=== PATIENT | male | born 1955 | race Caucasian/White ===

== ENCOUNTER 2020-05-26 10:08 | Emergency (ER) | payer OTHER, SELFPAY ==
[2020-05-26 10:14] VITALS: BP 131/83; PULSE 64; RESP 20; TEMP 37.1; O2SAT 100; BMI 30.4
--- NOTE | 2020-05-26 10:26 | XR_ITS ---
EXAMINATION: XR CHEST CLINICAL INFORMATION: Weakness. Positive Covid. COMPARISON: Chest 03/05/2017 TECHNIQUE: Frontal view of the chest was obtained. FINDINGS: The lungs are hyperexpanded with increased patchy ill-defined densities throughout both lungs and increase interstitial markings most prominent in the mid and lower lobes suspicious for interstitial or parenchymal infiltrates. No consolidation or pleural effusion seen. The heart size and pulmonary vascularity is normal. No gross bony abnormality. XR/XR chest 1V IMPRESSION: Hypovolemia with abnormal chest suggestive of interstitial and/or parenchymal infiltrates. This is a new finding from 03/05/2017
--- NOTE | 2020-05-26 10:27 | ECG_ITS ---
Test Reason : GENERAL MEDICAL Blood Pressure : / mmHG Vent. Rate : 062 BPM Atrial Rate : 062 BPM P-R Int : 182 ms QRS Dur : 096 ms QT Int : 442 ms P-R-T Axes : 056 -15 -09 degrees QTc Int : 448 ms Normal sinus rhythm Minimal voltage criteria for LVH, may be normal variant Borderline ECG When compared with ECG of 05-MAR-2017 11:46, Inverted T waves have replaced nonspecific T wave abnormality in Inferior leads Referred By: Dylon Wagner Electronically Signed By:FAISAL IBARRA
[2020-05-26 10:56] LABS: Basophils Percent Auto 0.3 % (0-2); Eosinophils Percent Auto 0.5 % (0-4); Hematocrit 40.5 % (42-52); Hemoglobin 14.1 g/dl (14.0-18.0); Imm Gran Abs Auto 0.02 X10*3/uL (0.00-0.03); Imm Gran Pct Auto 0.3 % (0.0-0.4); Lymphocytes Absolute Auto 0.9 X10*3/uL (1.2-4.9); Lymphocytes Percent Auto 14.7 % (20-40); Mean Corpuscular HGB Conc 34.8 g/dl (31.0-36.0); Mean Corpuscular Hemoglobin 30.3 pg (27.0-33.0); Mean Corpuscular Volume 86.9 fL (80-98); Mean Platelet Volume 9.1 fL (9.4-12.4); Monocytes Absolute Auto 0.4 X10*3/uL (0.1-1.2); Monocytes Percent Auto 6.9 % (2-11); Neutrophils Absolute Auto 4.5 X10*3/uL (2.0-8.3); Neutrophils Percent Auto 77.3 % (45-73); Platelet Count 186 X10*3/uL (160-400); Red Blood Count 4.66 X10*6/uL (4.60-5.80); White Blood Count 5.8 X10*3/uL (4.8-10.8)
[2020-05-26 10:57] LABS: MANUAL DIFF FLAG NO
[2020-05-26] MEDS: 0.9 % Sodium Chloride 1,000 ML 999 ML IV (10:58)
[2020-05-26] MEDS: Ketorolac Tromethamine 30 MG/ML VIAL IVPUSH (10:59)
[2020-05-26 11:14] LABS: Partial Thromboplastin Time 33.4 SEC (24.1-38.0)
[2020-05-26 11:27] LABS: Alanine Aminotransferase 37 U/L (0-40); Albumin Level 3.4 g/dL (3.5-5.0); Alkaline Phosphatase 45 U/L (39-117); Anion Gap 12 (12-20); Aspartate Amino Transferase 42 U/L (5-37); Bilirubin Total 0.8 mg/dL (0.0-1.0); Blood Urea Nitrogen 20 mg/dL (9-16); Calcium 8.3 mg/dL (8.4-10.2); Carbon Dioxide 23 mmol/L (22-29); Chloride 104 mmol/L (96-108); Creatinine Clr Calc Pharmacy 98.5; Estimated Glomerular Filt Rate > 60; Glucose Random 93 mg/dL (60-115); Potassium 4.2 mmol/l (3.3-5.1); Sodium 135 mmol/L (135-145)
[2020-05-26 11:33] LABS: Troponin-I High Sensitivity < 3.5 ng/L (<3.5-35.0)
--- NOTE | 2020-05-26 11:53 | ED_ITS ---
HPI - Weakness General Chief complaint: Weakness Stated complaint: covid symptoms Time Seen by Provider: 05/26/20 10:16 Source: patient Mode of arrival: ambulatory Limitations: no limitations History of Present Illness HPI Narrative: 64-year-old male with past medical history significant for enlarged prostate status post TURP 2017 presents ambulatory via triage with complaint of worsening myalgias and weakness ongoing for the past few days states he tested positive for COVID-19 5 days ago prior to that he only had some mild body aches however his symptoms have gotten worse. No chest pain or shortness of breath. States he feels like is no energy and body hurts and has had fever at home. Complaint: generalized weakness Onset (ago): day(s) Location: generalized Migration: none Severity: moderate Associated symptoms: myalgias Related Data Previous Rx's Medication Instructions Recorded albuterol sulfate 2 puff INHALATION Q4-6H PRN 7 Days 05/26/20 #18 g azithromycin [Zithromax Z-Gonzalez] 250 mg PO DAILY 5 Days #6 tab 05/26/20 ibuprofen 800 mg PO Q8H PRN #15 tab 05/26/20 Allergies Allergy/AdvReac Type Severity Reaction Status Date / Time No Known Allergies Allergy Verified 05/26/20 10:19 [No Known Allergies*] Review of Systems Review of Systems: Constitutional: No Weight loss, + Fever, + Chills, No Night Sweats, No Fatigue, No Malaise ENT/Mouth: No Hearing loss, No Ear Pain, + Nasal Congestion, No Sinus Pain, No Hoarseness, No sore throat, No Rhinorrhea, No Swallowing Difficulty Eyes: No Eye Pain, No Swelling, No Redness, No Foreign Body, No Discharge, No Vision Changes Cardiovascular: No Chest Pain, No SOB, No Dyspnea on Exertion, No Orthopnea, No Edema, No Palpitations Respiratory: +mild dry Cough, No Sputum, No Wheezing, No Smoke Exposure, No Dyspnea Gastrointestinal: No Nausea, No Vomiting, No Diarrhea, No Constipation, No abdominal Pain, No Hematochezia, No Melena Genitourinary: No Dysuria, No Urinary Frequency, No Hematuria, No Urinary Incontinence, No Urgency, No Flank Pain Musculoskeletal: No joint pain, No Myalgias, No Joint Swelling Skin: No Skin Lesions, No rash Neuro: No Weakness, No Numbness, No Paresthesias, No Loss of Consciousness, No Dizziness, No Headache Psych: No Social Issues Heme/Lymph: No Bruising, No Bleeding,No Lymphadenopathy Endocrine: No Polyuria, No Polydipsia, No Temperature Intolerance Yes all other systems are reviewed and are negative [facility] Social History Social History Advance Directives: No Advance Directives Information Provided: No Physical Exam Vital Signs: Vital Signs: Last Vital Signs Temp 97.7 F 05/26/20 14:00 Pulse 57 05/26/20 14:00 Resp 16 05/26/20 14:00 BP 119/75 05/26/20 14:00 Pulse Ox 99 05/26/20 14:00 Body Mass Index 30.4 Course Course Course Narrative: Positive COVID 3 days ago has had increased myalgias. Afebrile non tachy pulse ox 100% on room air. Has had dry cough and high fevers at home T-max 102 degrees. Will check labs chest x-ray rule out electrolyte derangement/consolidation on x-ray. Will treat with gradual fluid neb p.r.n.. Reevaluation(s) Reevaluation #1: Feels better after gradual fluids, Toradol and dexamethasone IV. Oxygen has remained stable. Ambulatory with steady gait with stable oxygen. Will be discharged home with supportive care return follow-up instructions. [facility] - Weakness Medical Records Attestation: I reviewed the patient's medical records. Lab Data Attestation: I reviewed the patient's lab results. Result diagrams: 05/26/20 10:41 05/26/20 10:41 Labs: Lab Results 05/26/20 05/26/20 05/26/20 Range/Units 10:41 10:41 10:41 WBC 5.8 (4.8-10.8) X10*3/uL RBC 4.66 (4.60-5.80) X10*6/uL Hgb 14.1 (14.0-18.0) g/dl Hct 40.5 L (42-52) % MCV 86.9 (80-98) fL MCH 30.3 (27.0-33.0) pg MCHC 34.8 (31.0-36.0) g/dl RDW 12.0 (11.0-16.0) % Plt Count 186 (160-400) X10*3/uL MPV 9.1 L (9.4-12.4) fL Immature Gran % (Auto) 0.3 (0.0-0.4) % Neut % (Auto) 77.3 H (45-73) % Lymph % (Auto) 14.7 L (20-40) % Gonzales % (Auto) 6.9 (2-11) % Eos % (Auto) 0.5 (0-4) % Baso % (Auto) 0.3 (0-2) % Lymph # (Auto) 0.9 L (1.2-4.9) X10*3/uL Gonzales # (Auto) 0.4 (0.1-1.2) X10*3/uL Eos # (Auto) 0.0 (0.0-0.4) X10*3/uL Baso # (Auto) 0.0 (0.0-0.2) X10*3/uL Abs Immat Gran (auto) 0.02 (0.00-0.03) X10*3/uL Absolute Neuts (auto) 4.5 (2.0-8.3) X10*3/uL Absolute Nucleated RBC 0.000 (0.0-0.012) X10*3/uL Nucleated RBC % (auto) 0.0 (0.0-0.2) /100WBC PT (10.8-13.0) SEC INR (0.9-1.1) APTT 33.4 (24.1-38.0) SEC Sodium 135 (135-145) mmol/L Potassium 4.2 (3.3-5.1) mmol/l Chloride 104 (96-108) mmol/L Carbon Dioxide 23 (22-29) mmol/L Anion Gap 12 (12-20) BUN 20 H (9-16) mg/dL Creatinine 0.85 (0.5-1.4) mg/dL Estim Creat Clear Calc 98.5 Estimated GFR > 60 Random Glucose 93 (60-115) mg/dL Calcium 8.3 L (8.4-10.2) mg/dL Total Bilirubin 0.8 (0.0-1.0) mg/dL AST 42 H (5-37) U/L ALT 37 (0-40) U/L Alkaline Phosphatase 45 (39-117) U/L Troponin I High Sens (<3.5-35.0) ng/L Total Protein 6.0 L (6.5-8.0) g/dL Albumin 3.4 L (3.5-5.0) g/dL 05/26/20 05/26/20 Range/Units 10:41 10:41 WBC (4.8-10.8) X10*3/uL RBC (4.60-5.80) X10*6/uL Hgb (14.0-18.0) g/dl Hct (42-52) % MCV (80-98) fL MCH (27.0-33.0) pg MCHC (31.0-36.0) g/dl RDW (11.0-16.0) % Plt Count (160-400) X10*3/uL MPV (9.4-12.4) fL Immature Gran % (Auto) (0.0-0.4) % Neut % (Auto) (45-73) % Lymph % (Auto) (20-40) % Gonzales % (Auto) (2-11) % Eos % (Auto) (0-4) % Baso % (Auto) (0-2) % Lymph # (Auto) (1.2-4.9) X10*3/uL Gonzales # (Auto) (0.1-1.2) X10*3/uL Eos # (Auto) (0.0-0.4) X10*3/uL Baso # (Auto) (0.0-0.2) X10*3/uL Abs Immat Gran (auto) (0.00-0.03) X10*3/uL Absolute Neuts (auto) (2.0-8.3) X10*3/uL Absolute Nucleated RBC (0.0-0.012) X10*3/uL Nucleated RBC % (auto) (0.0-0.2) /100WBC PT 13.5 H (10.8-13.0) SEC INR 1.1 (0.9-1.1) APTT (24.1-38.0) SEC Sodium (135-145) mmol/L Potassium (3.3-5.1) mmol/l Chloride (96-108) mmol/L Carbon Dioxide (22-29) mmol/L Anion Gap (12-20) BUN (9-16) mg/dL Creatinine (0.5-1.4) mg/dL Estim Creat Clear Calc Estimated GFR Random Glucose (60-115) mg/dL Calcium (8.4-10.2) mg/dL Total Bilirubin (0.0-1.0) mg/dL AST (5-37) U/L ALT (0-40) U/L Alkaline Phosphatase (39-117) U/L Troponin I High Sens < 3.5 (<3.5-35.0) ng/L Total Protein (6.5-8.0) g/dL Albumin (3.5-5.0) g/dL Imaging Data Chest x-ray: Radiologist's impression: [place] [id number] XRay Report Signed Patient: Hiwot Franco#: [id number] : 8Acct:[id number] Age/Sex: 64 / MADM Date: 05/26/20 Loc: .ED Attending Dr: Ordering Physician: Dylon Wagner NP Date of Service: 05/26/20 Procedure(s): XR chest 1V Accession Number(s): [id number] cc: Dylon Wagner 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 Positive Covid. COMPARISON: Chest 03/05/2017 TECHNIQUE: Frontal view of the chest was obtained. FINDINGS: The lungs are hyperexpanded with increased patchy ill-defined densities throughout both lungs and increase interstitial markings most prominent in the mid and lower lobes suspicious for interstitial or parenchymal infiltrates. No consolidation or pleural effusion seen. The heart size and pulmonary vascularity is normal. No gross bony abnormality. XR/XR chest 1V IMPRESSION: Hypovolemia with abnormal chest suggestive of interstitial and/or parenchymal infiltrates. This is a new finding from 03/05/2017 Dictated By:SARITA HERRMANN MD Signed By:<Electronically signed by SARITA HERRMANN MD in OV>05/26/20 1134 DD/ 1026 TD/TT: Braze Operator: NGOC ECG Data Interpretation: Normal sinus rhythm DE interval within normal limits Rate 62 Nonspecific T-wave abnormality in the inferior leads Discharge Plan Discharge Clinical Impression: COVID-19 Patient Disposition: Home, Self-Care Instructions: COVID-19 (Coronavirus Disease 2019) (ED) Additional Instructions: Drink plenty of fluids Take medication prescribed Breathing exercises as reviewed Return if any concerns or worsening symptoms otherwise supportive care as discussed Self-isolation/social distancing for the next 14 days and at least until 3 days symptom-free Thank you Prescriptions: New azithromycin [Zithromax Z-Gonzalez] 250 mg tablet 250 mg PO DAILY 5 Days Qty: 6 RF: 0 ibuprofen 800 mg tablet 800 mg PO Q8H PRN (Reason: pain) Qty: 15 RF: 0 albuterol sulfate 90 mcg/actuation HFA aerosol inhaler 2 puff inhalation Q4-6H PRN (Reason: shortness of breath or wheezing) 7 Days Qty: 18 RF: 0 Referrals: ED Physician,Generic [Emergency Provider] - 1 week Interventions: ED Discharge Assessment Last Done: 05/26/20 14:27
[2020-05-26 12:00] VITALS: BP 105/66; PULSE 63; RESP 15; TEMP 36.8; O2SAT 94
[2020-05-26 12:10] LABS: INTERNATIONAL NORM RATIO 1.1 (0.9-1.1); Prothrombin Time 13.5 SEC (10.8-13.0)
[2020-05-26] MEDS: Albuterol Sulfate 90 MCG 8 GM INHALER 4 PUFF INHALE (12:12)
[2020-05-26 12:13] VITALS: PULSE 61; O2SAT 95
[2020-05-26 14:00] VITALS: BP 119/75; PULSE 57; RESP 16; TEMP 36.5; O2SAT 99
== END 2020-05-26 14:45 | disposition home or self-care (01) ==
PROVIDERS: Nurse Practitioner Primary Care; Emergency Provider Emergency Medicine Emergency Medical Services
DX: U07.1 COVID-19 (principal)
CPT/HCPCS: 36415; 71045; 80053; 84484; 85025; 85610; 85730; 93005; 94640; 96361; 96374; 96375; 99283; 99284; J1100; J1885

== ENCOUNTER 2021-02-20 10:37 | Outpatient (REF) | payer SELFPAY | END 2021-02-20 10:38 | disposition home or self-care (01) | LOC: HO.HAP 10:37 | PROVIDERS: PCP Internal Medicine; Visit Provider Internal Medicine | DX: Z13.89 Encounter for screening for other disorder (principal) ==

== ENCOUNTER 2021-03-08 09:17 | Outpatient (REF) | payer SELFPAY ==
--- NOTE | 2021-03-08 10:35 | MHC.AU.HFU ---
Hearing Instrument Follow-Up- Binaural Date of Visit: 03/08/21 Right Ear: Gaming Director: Oticon Model: Opn 2 miniRITE Serial Number: (Original) [id number] (Current, after last repair) [id number] Repair Warranty: 05/24/2021 Loss and Damage Warranty: 05/24/2020 Battery Size: 312 Bursar: Size 4 100 gain Type of Mold: Power Bursar Mold SN: [id number] Warranty: 05/26/2021 Type of Wax Guard: prowax Dispensed By: [facility] Date of Fittin05/08/2018 Left Ear: Gaming Director: Oticon Model: Opn 2 miniRITE Serial Number: [id number] Repair Warranty: 05/24/2021 Loss and Damage Warranty: 05/24/2020 Battery Size: 312 Bursar: Size 4 85 gain Type of Mold: RITE Mold hard minifit SN: [id number] Warranty: 08/09/2018 Type of Wax Guard: Prowax Dispensed By: [facility] Date of Fittin05/08/2018 Follow-Up Summary: Patient arrived to shredder picker his repaired integrated store specialist (right side). Patient reports that the right hearing aid continued to produce random beeps, though less frequently than before. He would like to send the right hearing aid out for repair. He asked if we could reprogram the left hearing aid for the right ear, and place the right integrated store specialist/mold on it to help him get by, as he prefers use of his right ear. The left instrument was reprogrammed and the mold switched over. The left store specialist/mold was returned to the patient to hold onto until the right hearing aid comes back from repair. Recommendations: Recommendations: Patient will be contacted when materials have arrived. Diagnosis Code(s): Primary Diagnosis: H90.6 Mixed Hearing Loss, Bilateral Signature: Provider: Linda Montenegro, CCC-A
== END 2021-03-08 09:18 | disposition home or self-care (01) ==
LOC: HO.HAP 09:17
PROVIDERS: Visit Provider Internal Medicine
DX: Z13.89 Encounter for screening for other disorder (principal)

== ENCOUNTER 2021-03-24 10:04 | Outpatient (REF) | payer SELFPAY | END 2021-03-24 10:05 | disposition home or self-care (01) | LOC: HO.HAP 10:04 | PROVIDERS: Visit Provider Internal Medicine | DX: Z13.89 Encounter for screening for other disorder (principal) ==

== ENCOUNTER 2021-05-04 09:10 | Outpatient (REF) | payer SELFPAY ==
--- NOTE | 2021-05-09 08:15 | MHC.AU.HFU ---
Hearing Instrument Follow-Up- Binaural Date of Visit: 05/04/21 Right Ear: Qa Lead: Oticon Model: Opn 2 miniRITE Serial Number: (Original) [id number] (Current, after last repair) [id number] Repair Warranty: 05/24/2021 Loss and Damage Warranty: 05/24/2020 Battery Size: 312 Computer Aided Drafter: Size 4 100 gain Type of Mold: Power Computer Aided Drafter Mold SN: [id number] Warranty: 05/26/2021 Type of Wax Guard: prowax Dispensed By: [facility] Date of Fittin05/08/2018 Left Ear: Qa Lead: Oticon Model: Opn 2 miniRITE Serial Number: [id number] Repair Warranty: 05/24/2021 Loss and Damage Warranty: 05/24/2020 Battery Size: 312 Computer Aided Drafter: Size 4 85 gain Type of Mold: RITE Mold hard minifit SN: [id number] Warranty: 08/09/2018 Type of Wax Guard: Prowax Dispensed By: [facility] Date of Fittin05/08/2018 Follow-Up Summary: HAP - Patient reports the right aid has intermittent, but frequent distortion, followed by lower volume, then hearing aid stops. Sent in for repair. Reprogrammed the left aid for the right ear. Patient reports he did not receive the left integrated mold as reported in a previous office note by Nely Pat who reported today she remembers giving the patient the mold. Asked patient to continue to look for the left mold. Patient is very unhappy about the rechargeable batteries being discontinued. Contacted Delores Khan at [facility] to ask about the offer of exchanging of aid to the OPN S lithium rechargeable and possibly getting a no charge left mold replacement for patients inconvenience. Delores reports the aids were originally processed as [employer] products and CANNOT be exchanged despite patient now having insurance which does not cover hearing aids.. The N/C left mold with 100 gain film and video editor will be processed. Will contact patient to give him this information. Recommendations: (Other): Schedule appointment when repair and new left integrated mold are received. Patient will bring in old hearing aids to be reprogrammed to use as back up. Patient will be leaving for [place] from May to July. Diagnosis Code(s): Primary Diagnosis: H90.6 Mixed Hearing Loss, Bilateral Services Performed: MARCOS Non-Quantity Charges: HANC: NonBillable Event Signature: Provider: Ángela Smith,,,, , CCC-A
== END 2021-05-04 09:11 | disposition home or self-care (01) ==
LOC: HO.HAP 09:10
PROVIDERS: Visit Provider Internal Medicine
DX: Z13.89 Encounter for screening for other disorder (principal)

== ENCOUNTER 2021-05-30 12:36 | Outpatient (REF) | payer SELFPAY ==
--- NOTE | 2021-05-30 13:37 | MHC.AU.HFU ---
Hearing Instrument Follow-Up- Binaural Date of Visit: 05/30/21 Right Ear: Public Health Professor: Oticon Model: Opn 2 miniRITE Serial Number: (Original) [id number] (Current, after last repair) [id number] Repair Warranty: 05/24/2021 Loss and Damage Warranty: 05/24/2020 Battery Size: 312 Learning Support Services Director: Size 4 100 gain Type of Mold: Power Learning Support Services Director Mold SN: [id number] Warranty: 05/26/2021 Type of Wax Guard: prowax Dispensed By: [facility] Date of Fittin05/08/2018 Left Ear: Public Health Professor: Oticon Model: Opn 2 miniRITE Serial Number: [id number] Repair Warranty: 05/24/2021 Loss and Damage Warranty: 05/24/2020 Battery Size: 312 Learning Support Services Director: Size 4 85 gain Type of Mold: RITE Mold hard minifit SN: [id number] Warranty: 08/24/2021 Type of Wax Guard: Prowax Dispensed By: [facility] Date of Fittin05/08/2018 Follow-Up Summary: Fit the repaired right aid #[id number] picking up previous setting with 2 programs. Per patient request, also programmed the left OPN 2 mini RITE #[id number] and his old Agil Pro RITE to all be set for the current RIGHT OPN 2 mini RITE settings. Dispensed the courtesy no charge remake of the left RITE earmold. Patient shown how to change the Right RITE mold to any of the aids when needed. Recommendations: Hearing instrument follow-up or maintenance as needed. Please contact our clinic with any questions or concerns. Diagnosis Code(s): Primary Diagnosis: H90.3 Bilateral Sensorineural Hearing Loss Services Performed:MARCOS Non-Quantity Charges: HANC: NonBillable Event Signature:Provider: Linda Smith, CCC-A
== END 2021-05-30 12:37 | disposition home or self-care (01) ==
LOC: HO.HAP 12:36
PROVIDERS: Visit Provider Internal Medicine
DX: Z13.89 Encounter for screening for other disorder (principal)

== ENCOUNTER 2021-10-12 11:15 | Outpatient (REF) | payer OTHER, SELFPAY ==
--- NOTE | ~2021-10-12 | MR_ITS ---
EXAMINATION: MR LUMBAR SPINE WITHOUT CONTRAST CLINICAL INFORMATION: 66-year-old with low back pain and bilateral sciatica. COMPARISON: None. TECHNIQUE: MRI of the lumbar spine was obtained using routine sequences without contrast. FINDINGS: Coronal Alignment: Normal. Sagittal Alignment: Trace anterolisthesis at L3-L4 noted. Otherwise normal. Lumbosacral Junction: Normal. 5 oxf-khb-rlicfoi lumbar-type vertebral bodies. Vertebral Bodies: Normal height. Disc Spaces and Endplates: Moderate disc space height loss at L5-S1 with disc desiccation, Schmorl's nodes and spondylosis. Disc desiccation noted at the levels between L2-L3 and L4-L5 inclusive, with minor degrees of spondylosis without significant disc space height loss. Spinal Canal: No abnormal developmental findings. Bone Marrow: Minimal type I degenerative marrow signal change along the endplates at L5-S1 with type II marrow signal changes as well at the L5-S1 and L4-L5 levels. Otherwise, no significant marrow-replacing process or bone marrow edema. Conus Medullaris: Terminates at T12. Morphology and signal is normal. Intradural Nerve Roots: Within normal limits. L5-S1: Diffuse disc bulging is noted with mild flattening of the ventral dural sac and minor facet arthrosis with mild narrowing of the subarticular zones without significant central spinal canal stenosis or neural impingement. There is mild bilateral neural foraminal stenosis without definite neural impingement. L4-L5: Mild diffuse disc bulging is noted with slight flattening of the ventral dural sac, with mild ligamentum flavum thickening and facet arthrosis. There is mild narrowing of the subarticular zones bilaterally without significant central spinal canal stenosis. No significant neural foraminal stenosis. L3-L4: Mild diffuse disc bulging is noted with a transverse central annular fissure, with flattening of the ventral dural sac with a prominent dorsal epidural fat pad, ligamentum flavum thickening and [id number]-[id number] facet arthropathy, right more than left. There is moderate central spinal canal stenosis, with crowding of the intradural nerve roots, with severe right and moderate left subarticular recess stenosis, likely with encroachment on the traversing right L4 nerve root. Mild foraminal narrowing noted on the right without definite exiting neural impingement. L2-L3: Mild disc bulging noted with mild flattening of the ventral dural sac, with ligamentum flavum thickening and the moderate bilateral facet hypertrophic degenerative change. Mild central canal stenosis is noted with mild narrowing of the right subarticular zone. No significant neural foraminal stenosis. L1-L2: No disc bulge or herniation. Mild facet arthropathy noted bilaterally. No canal or neural foraminal stenosis. Paraspinal/Retroperitoneal: The paravertebral soft tissues appear grossly unremarkable. There are bony productive changes along the anterior margins of both SI joints with degenerative reactive a sclerotic changes on the right. There is an 8 mm ovoid focus of low T1 signal in the right iliac bone which is nonspecific but could reflect a bone island. MR/MR lumbar spine wo con IMPRESSION: 1. Multilevel discogenic degenerative changes between L2-L3 and L5-S1 inclusive, most apparent at L5-S1 with trace anterolisthesis at L3-L4. 2. Multilevel disc bulging as described above with multilevel posterior element hypertrophic degenerative changes, with moderate spinal canal stenosis at L3-L4 and mild spinal canal stenosis at L2-L3 with severe right subarticular recess stenosis at L3-L4 likely encroaching on the traversing right L4 nerve root. 3. Mild right-sided neural foraminal stenosis at L3-L4 without neural impingement and mild bilateral neural foraminal stenosis at L5-S1 without neural impingement.
== END 2021-10-12 11:16 | disposition home or self-care (01) ==
LOC: HO.MRI 11:15
PROVIDERS: Visit Provider Psychiatry & Neurology Neurology
DX: M54.16 Radiculopathy, lumbar region (principal)
CPT/HCPCS: 72148

== ENCOUNTER 2022-01-30 06:27 | Outpatient (REF) | payer OTHER, SELFPAY ==
--- NOTE | ~2022-01-30 | FL_ITS ---
EXAMINATION: XR FLUOROSCOPY WITH IMAGES CLINICAL INFORMATION: R10.2 - Pelvic and perineal pain COMPARISON: MR lumbar spine 10/12/2021 TECHNIQUE: Fluoroscopy performed by Dr. Marcial Platt. Fluoroscopy time: 0.3 minutes. Cumulative Dose: 9.48 mGy. DAP: 1.16 Gy-cm2. Images: 2. FINDINGS: There is a needle directed at the lower sacral coccygeal region with tip at the anterior cortex.. Contrast is present just deep to the anterior cortex. No visible vascular communication. FL/FL guidance in treatment room IMPRESSION: Fluoroscopy for pain management procedure.
== END 2022-01-30 06:28 | disposition home or self-care (01) ==
LOC: HO.RADIR 06:27
PROVIDERS: Visit Provider Anesthesiology
DX: M76.30 Iliotibial band syndrome, unspecified leg (principal); R10.2 Pelvic and perineal pain; G89.29 Other chronic pain
CPT/HCPCS: 64999; J3300

== ENCOUNTER 2022-10-15 21:55 | Emergency (ER) | payer OTHER, SELFPAY ==
[2022-10-15 22:07] VITALS: BP 126/79; PULSE 85; RESP 18; TEMP 36.7; O2SAT 97; BMI 30.1
[2022-10-15 22:31] LABS: MANUAL DIFF FLAG NO
[2022-10-15 22:32] LABS: Basophils Percent Auto 0.7 % (0-2); Eosinophils Absolute Auto 0.1 X10*3/uL (0.0-0.4); Eosinophils Percent Auto 1.3 % (0-4); Hematocrit 45.3 % (42.0-52.0); Hemoglobin 16.1 g/dl (14.0-18.0); Imm Gran Abs Auto 0.01 X10*3/uL (0.00-0.03); Imm Gran Pct Auto 0.2 % (0.0-0.4); Lymphocytes Absolute Auto 1.3 X10*3/uL (1.2-4.9); Lymphocytes Percent Auto 21.1 % (20-40); Mean Corpuscular HGB Conc 35.5 g/dl (31.0-36.0); Mean Corpuscular Hemoglobin 30.6 pg (27.0-33.0); Mean Corpuscular Volume 86.1 fL (80.0-98.0); Mean Platelet Volume 9.1 fL (9.4-12.4); Monocytes Absolute Auto 0.5 X10*3/uL (0.1-1.2); Neutrophils Absolute Auto 4.2 x10*3/uL (2.0-8.3); Neutrophils Percent Auto 68.7 % (45-73); Platelet Count 184 X10*3/uL (160-400); Red Blood Count 5.26 X10*6/uL (4.60-5.80); Red Cell Distribution Width 13.6 % (11.0-16.0); White Blood Count 6.1 X10*3/uL (4.8-10.8)
[2022-10-15 22:44] LABS: Appearance Urine Hazy; Color Urine Yellow; Glucose Urine UA Negative (Negative); Leukocyte Esterase Urine Negative (Negative); Nitrite Urine Negative (Negative); PH 5.5 (5.0-9.0); Specific Gravity - Urine >= 1.030 (1.005-1.025); UMIC TRIGGER UACC YES; Urine Blood Large (3+) (Negative); Urine Ketones Negative (Negative); Urine Protein 100 (2+) mg/dL (Neg-Trace)
[2022-10-15 22:47] LABS: Bacteria Urine None Seen (None Seen); Hyaline Casts Urine 0-2 /LPF (0-2); RBC Urine >20 /HPF (0-2); Squamous Epithelial Cell Urine 0-2 /HPF (0-2); UACC Culture Trigger YES
[2022-10-15 22:52] LABS: Alanine Aminotransferase 52 U/L (0-40); Albumin Level 4.4 g/dL (3.5-5.0); Alkaline Phosphatase 63 U/L (39-117); Anion Gap 13 (12-20); Aspartate Amino Transferase 54 U/L (5-37); Bilirubin Direct 0.2 mg/dL (0.0-0.5); Bilirubin Total 0.8 mg/dL (0.0-1.0); Blood Urea Nitrogen 18 mg/dL (9-16); Calcium 10.4 mg/dL (8.4-10.2); Carbon Dioxide 26 mmol/L (22-29); Chloride 109 mmol/L (96-108); Estimated Glomerular Filt Rate > 60; Glucose Random 103 mg/dL (60-115); Lipase 15 U/L (8-78); Potassium 4.2 mmol/L (3.3-5.1); Sodium 144 mmol/L (135-145); Total Protein 7.2 g/dL (6.5-8.0)
[2022-10-16 00:19] VITALS: BP 132/85; PULSE 61; RESP 18; TEMP 36.4; O2SAT 96
--- NOTE | 2022-10-16 01:07 | ED_ITS ---
HPI - Male Genitourinary General Chief complaint: Urogenital-Male Stated complaint: problem urinating, blood in urine Time Seen by Provider: 10/16/22 00:35 Source: patient and family (Spouse) Mode of arrival: ambulatory Limitations: no limitations History of Present Illness HPI Narrative: 67-year-old male status post TURP procedure in 2017 came in for evaluation of gross hematuria patient has been urinating blood all day today, both do not feel dizzy or lightheadedness, patient is not on AC. No fever, chills. Related Data Home Medications Medication Instructions Recorded Confirmed clonazepam 0.5 mg tablet 0.5 mg PO BID 01/03/22 01/03/22 gabapentin 600 mg tablet 600 mg PO DAILY 01/03/22 01/03/22 tamsulosin 0.4 mg capsule 0.8 mg PO DAILY 01/03/22 01/03/22 Previous Rx's Medication Instructions Recorded albuterol sulfate 90 mcg/actuation 2 puff inhalation Q4-6H PRN 05/26/20 aerosol inhaler shortness of breath or wheezing 7 days #18 grams azithromycin 250 mg tablet 250 mg PO DAILY 5 days #6 tabs 05/26/20 (Zithromax Z-Gonzalez) ibuprofen 800 mg tablet 800 mg PO Q8H PRN pain #15 tabs 05/26/20 Allergies Allergy/AdvReac Type Severity Reaction Status Date / Time No Known Allergies Allergy Verified 10/15/22 22:11 [No Known Allergies*] Review of Systems Review of Systems: All other systems are reviewed and are negative Constitutional: Reports as per HPI and Reports no additional constitutional complaints Eyes: Reports as per HPI and Reports no additional eye complaints Reports system reviewed and no additional complaints, except as documented Cardiovascular: Reports as per HPI and Reports no additional cardiovascular complaints Respiratory: Reports as per HPI and Reports no additional respiratory complaints Gastrointestinal: Reports as per HPI and Reports no additional gastrointestinal complaints Genitourinary: Reports no additional female genitourinary complaints Musculoskeletal: Reports no additional musculoskeletal complaints Skin/Breast: Reports system reviewed and no additional complaints, except as docu Psychiatric: Reports no additional psychiatric complaints Endocrine: Reports no additional endocrine complaints Hematologic/Lymphatic: Reports no additional hematologic/lymphatic complaints Allergic/Immunologic: Reports no additional allergic/immunologic complaints Reports system reviewed and no additional complaints, except as documented and Reports Abnormal speech present [facility] Past Medical History Medical History JOELLEN (obstructive sleep apnea) Surgical History History of surgical amputation of finger of left hand Social History Social History Advance Directives: No Advance Directives Information Provided: Yes Physical Exam Vital Signs: Vital Signs: Last Vital Signs Temp 98.1 F 10/16/22 01:38 Pulse 55 10/16/22 01:38 Resp 16 10/16/22 01:38 BP 130/74 10/16/22 01:38 Pulse Ox 97 10/16/22 01:38 O2 Del Method Room Air 10/16/22 01:38 BMI result Body Mass Index 30.1 Vital signs have been reviewed as appeared to be correct. Blood pressure normal. Heart rate normal. Respiration rate normal. Temperature normal. Oxygen saturation normal. Appearance: Alert. Oriented X3. No acute distress. Head: Normal external exam. Normocephalic. Atraumatic. No [place] signs noted. No raccoon eyes noted Eyes: PERRLA. EOMI. Conjunctiva and sclera normal. Eyelids normal. ENT: TM's Normal. Pharynx normal. Uvula midline. Moist mucous membranes. No trismus noted. No drooling noted. No muffled voice noted. Neck: Normal inspection. Neck supple. FROM. No adenopathy. Thyroid Normal. No meningeal signs. No neck mass noted. CVS: Normal heart rate and rhythm. Heart sound normal. No murmurs noted. Pulses normal throughout. Respiratory: No respiratory distress. Painless inspiration. Breath sounds normal. No wheezes/rales/rhonchi noted. Chest nontender. No accessory muscle usage noted or decreased air movement noted. Abdomen: Soft and nontender. Bowel sounds normal in all 4 quadrants. No distention noted. No organomegaly noted. No visible injury noted. Back: No CVA tenderness. Full range of motion noted. Skin: Skin warm and dry. Normal skin color. Normal skin turgor. No rashe s/lesions/lacerations noted. Extremities: No lower extremity edema. Extremities exhibit normal range of motion. Extremities nontender. Neuro: Oriented X 3. Cranial nerve exam: II-XII are grossly intact No motor deficit. No sensory deficit. Reflexes normal. Course Course Course Narrative: 67-year-old male came in for gross hematuria, no AC, patient received 3 ways catheter with continuous bladder irrigation, urine is clear now no active bleeding, patient do not feel dizziness or lightheadedness, normal H&H. Patient was instructed to follow-up with urologist for further evaluation return to the emergency department if bleeding continues. Medical Decision Making Differential Diagnosis Differential Diagnoses: The differential diagnosis associated with the presentation includes (Severe anemia, electrolyte abnormalities, UTI, hemodynamic instability.) Admission/Observation Consideration of admission/observation: Escalation of care including admi ssion/observation considered Lab Data MDM Lab Attestation statement: I reviewed the patient's lab results. 10/15/22 22:26 10/15/22 22: Labs: Lab Results 10/15/22 10/15/22 10/15/22 Range/Units 22:26 22:26 22:26 WBC 6.1 (4.8-10.8) X10*3/uL RBC 5.26 (4.60-5.80) X10*6/uL Hgb 16.1 (14.0-18.0) g/dl Hct 45.3 (42.0-52.0) % MCV 86.1 (80.0-98.0) fL MCH 30.6 (27.0-33.0) pg MCHC 35.5 (31.0-36.0) g/dl RDW 13.6 (11.0-16.0) % Plt Count 184 (160-400) X10*3/uL MPV 9.1 L (9.4-12.4) fL Immature Gran % (Auto) 0.2 (0.0-0.4) % Neut % (Auto) 68.7 (45-73) % Lymph % (Auto) 21.1 (20-40) % [place] % (Auto) 8.0 (2-11) % Eos % (Auto) 1.3 (0-4) % Baso % (Auto) 0.7 (0-2) % Lymph # (Auto) 1.3 (1.2-4.9) X10*3/uL [place] # (Auto) 0.5 (0.1-1.2) X10*3/uL Eos # (Auto) 0.1 (0.0-0.4) X10*3/uL Baso # (Auto) 0.0 (0.0-0.2) X10*3/uL Abs Immat Gran (auto) 0.01 (0.00-0.03) X10*3/uL Absolute Neuts (auto) 4.2 (2.0-8.3) x10*3/uL Absolute Nucleated RBC 0.000 (0.0-0.012) X10*3/uL Nucleated RBC % (auto) 0.0 (0.0-0.2) /100WBC Sodium 144 (135-145) mmol/L Potassium 4.2 (3.3-5.1) mmol/L Chloride 109 H (96-108) mmol/L Carbon Dioxide 26 (22-29) mmol/L Anion Gap 13 (12-20) BUN 18 H (9-16) mg/dL Creatinine 1.04 (0.5-1.4) mg/dL Estim Creat Clear Calc 82.0 Estimated GFR > 60 Random Glucose 103 (60-115) mg/dL Calcium 10.4 H D (8.4-10.2) mg/dL Total Bilirubin 0.8 (0.0-1.0) mg/dL Direct Bilirubin 0.2 (0.0-0.5) mg/dL AST 54 H (5-37) U/L ALT 52 H (0-40) U/L Alkaline Phosphatase 63 (39-117) U/L Total Protein 7.2 (6.5-8.0) g/dL Albumin 4.4 (3.5-5.0) g/dL Lipase 15 (8-78) U/L Urine Color Yellow Urine Appearance Hazy Urine pH 5.5 (5.0-9.0) Ur Specific [place] >= 1.030 H (1.005-1.025) Urine Protein 100 (2+) H (Neg-Trace) mg/dL Urine Glucose (UA) Negative (Negative) mg/dL Urine Ketones Negative (Negative) mg/dL Urine Blood Large (3+) H (Negative) Urine Nitrite Negative (Negative) Ur Leukocyte Esterase Negative (Negative) Urine RBC >20 H (0-2) /HPF Urine WBC 6-10 H (0-5) /HPF Ur Squamous Epith Cells 0-2 (0-2) /HPF Urine Bacteria None Seen (None Seen) Hyaline Casts 0-2 (0-2) /LPF Discharge Plan Discharge Clinical Impression: Gross hematuria Patient Disposition: Home, Self-Care Instructions: Hematuria (ED) Prescriptions: No Action azithromycin [Zithromax Z-Gonzalez] 250 mg tablet 250 mg PO DAILY 5 Days Qty: 6 0RF ibuprofen 800 mg tablet 800 mg PO Q8H PRN (Reason: pain) Qty: 15 0RF albuterol sulfate 90 mcg/actuation HFA aerosol inhaler 2 puff inhalation Q4-6H PRN (Reason: shortness of breath or wheezing) 7 Days Qty: 18 0RF gabapentin 600 mg tablet 600 mg PO DAILY clonazepam 0.5 mg tablet 0.5 mg PO BID tamsulosin 0.4 mg capsule 0.8 mg PO DAILY Referrals: Sesar Huang MD [Physician] - Andrei Danielle III, MD [Primary Care Provider] -
[2022-10-16 01:32] VITALS: BP 110/72; PULSE 65
[2022-10-16 01:33] VITALS: BP 113/73; PULSE 58
[2022-10-16 01:34] VITALS: BP 123/78; PULSE 74
[2022-10-16 01:38] VITALS: BP 130/74; PULSE 55; RESP 16; TEMP 36.7; O2SAT 97
--- NOTE | 2022-10-16 01:41 | MHC.EDTECH ---
PT ORTHOSTATICS VITALS SIGN DONE ,VITALS SIGN TAKEN ,PT IN ROOM .
--- NOTE | 2022-10-16 02:32 | PC.NURSE ---
After initial urine output with dark red urine, pt exhibiting clearing urine through CBI. Per provider, plan to continue with irrigation, and if remaining clear, possible discharge with urology f/u.
== END 2022-10-16 04:01 | disposition home or self-care (01) ==
PROVIDERS: Emergency Provider Emergency Medicine; PCP Internal Medicine
DX: R31.0 Gross hematuria (principal); R39.198 Other difficulties with micturition
CPT/HCPCS: 36415; 80048; 80076; 81001; 83690; 85025; 87086; 99284

== ENCOUNTER 2023-08-07 13:22 | Outpatient (REF) | payer OTHER, SELFPAY ==
--- NOTE | 2023-08-08 15:41 | MHC.AU.HA3 ---
Hearing Instrument Follow-Up- Binaural Date of Visit: 08/07/23 Right Ear: Joselo, Model, Color, Serial Number: (Original) [id number] (Current, after last repair) [id number] Adobe Layer Repair Warranty: 05/24/2021 Adobe Layer Loss and Damage Warranty: 05/24/2020 [facility] Service Plan: Battery Size: 312 Skeins Yarn Examiner/Slim Tube: Size 4 100 gain Earmold/Dome/CShell/SlimTip:Power Skeins Yarn Examiner Mold SN: [id number] Warranty: 05/26/2021 Type of Wax Guard: prowax Dispensed By: [facility] Date of Fittin05/08/2018 Left Ear: Joselo, Model, Color, Serial Number: [id number] Adobe Layer Repair Warranty: 05/24/2021 Adobe Layer Loss and Damage Warranty: 05/24/2020 [facility] Service Plan: Battery Size: 312 Skeins Yarn Examiner/Slim Tube: Size 4 85 gain Earmold/Dome/CShell/SlimTip: RITE Mold hard minifit SN: [id number] Warranty: 08/24/2021 Type of Wax Guard: Prowax Dispensed By: [facility] Date of Fittin05/08/2018 Follow-Up Summary: Pt's dropped off [id number] on 08/07/23. Just the aid was left, in its case, without the embedded speaker mold. Tested aid with stock 100 gain foundry laborer coreroom and found loud static. Spoke with pt on phone 08/08/23. Pt confirms he is wearing the speaker mold on his back up aid. Advised of cost to send for repair, $330, pt agrees. NOTE: This aid is now being worn on the right ear. It is to be programmed for the right side upon return. A standard battery door was put on the aid to go [facility]. Cj's Z power door is in his case in the repair drawer to be put back on the aid before returning it to him. Recommendations: Recommendations: Patient will be contacted when materials have arrived. Diagnosis Code(s): Primary Diagnosis: H90.3 Bilateral Sensorineural Hearing Loss Signature: Provider: Emilee Fisher, [facility]
== END 2023-08-07 13:23 | disposition home or self-care (01) ==
LOC: HO.HAP 13:22
PROVIDERS: Visit Provider Internal Medicine
DX: Z13.89 Encounter for screening for other disorder (principal)

== ENCOUNTER 2023-09-04 13:22 | Outpatient (REF) | payer SELFPAY | END 2023-09-04 13:23 | disposition home or self-care (01) | LOC: HO.HAP 13:22 | PROVIDERS: Visit Provider Internal Medicine | DX: Z46.1 Encounter for fitting and adjustment of hearing aid (principal); H90.6 Mixed conductive and sensorineural hearing loss, bilateral | CPT/HCPCS: V5014 ==